=== PATIENT | male | born 1935 | race Caucasian/White ===

== ENCOUNTER 2018-08-22 14:48 | Emergency (ER) | payer OTHER ==
[~2018-08-22] VITALS: Ht 182.9 cm; Wt 92.5 kg
[~2018-08-22 14:48] MED LIST: AMLO5 PO; Amoxicillin125 MG PO; DILT120ERA PO; FURO40 PO; K-Dur 20 meq T20 MEQ PO; METO2.5 PO; OMEP20ER PO; POTCHL10ER PO; SIMV10 PO
[2018-08-22 15:12] LABS: BASOPHILS ABSOLUTE AUTO 0.03 K/mm3 (0.00-0.23); BASOPHILS PERCENT AUTO 1 % (0-2); EOSINOPHILS ABSOLUTE AUTO 0.06 K/mm3 (0.00-0.68); EOSINOPHILS PERCENT AUTO 1 % (0-6); Hematocrit 36.5 % (37.0-53.0); Hemoglobin 12.4 g/dL (13.5-17.5); IMMATURE GRAN ABSOLUTE AUTO 0.01 K/mm3 (0.00-0.10); IMMATURE GRAN PERCENT AUTO 0 % (0-1); LYMPHOCYTES ABSOLUTE AUTO 1.78 K/mm3 (0.84-5.20); LYMPHOCYTES PERCENT AUTO 33 % (21-46); MONOCYTES ABSOLUTE AUTO 0.64 K/mm3 (0.16-1.47); MONOCYTES PERCENT AUTO 12 % (4-13); Mean Corpuscular HGB 31.3 pg (26.0-34.0); Mean Corpuscular Volume 92 fL (80-100); Mean Platelet Volume 9.1 fL (9.1-12.4); NEUTROPHILS ABSOLUTE AUTO 2.93 K/mm3 (1.96-9.15); NEUTROPHILS PERCENT AUTO 54 % (41-73); Platelet Count 235 K/mm3 (150-400); RDW Coefficient Variation 12.2 % (11.7-14.2); RDW Standard Deviation 41.3 fL (35.1-46.3); Red Blood Cell Count 3.96 M/mm3 (4.30-5.90); White Blood Cell Count 5.45 K/mm3 (4.00-11.30)
[2018-08-22 15:36] LABS: Albumin, Blood 3.4 g/dL (3.4-5.0); Bilirubin, Total 0.5 mg/dL (0.1-1.0); Bun/Creatinine Ratio 9.9 (12.0-20.0); Calcium, Blood 8.4 mg/dL (8.5-10.1); Creatinine, Blood 1.41 mg/dL (0.60-1.20); Globulin, Blood 3.5 g/dL (2.2-4.0); Potassium, Blood 4.3 mmol/L (3.5-5.5); Total Protein, Blood 6.9 g/dL (6.4-8.2)
== END 2018-08-22 16:30 | disposition home or self-care (01) ==
LOC: ER 14:48
PROVIDERS: Emergency Medicine
DX: R55 Syncope and collapse (principal); E86.9 Volume depletion, unspecified; J44.9 Chronic obstructive pulmonary disease, unspecified; Z79.899 Other long term (current) drug therapy; I48.91 Unspecified atrial fibrillation; I48.92 Unspecified atrial flutter; I12.9 Hypertensive chronic kidney disease with stage 1 through stage 4 chronic kidney disease, or unspecified chronic kidney disease; N18.9 Chronic kidney disease, unspecified; E78.00 Pure hypercholesterolemia, unspecified
CPT/HCPCS: 71045; 80053; 85025; 93005; 93010; 96360; 99284-25; J7030

== ENCOUNTER 2020-05-14 20:57 | Observation (INO) | payer OTHER ==
[~2020-05-14] VITALS: Ht 182.9 cm; Wt 88.9 kg
[~2020-05-14 20:57] MED LIST changes: +Augmentin 875-1 EACH PO
[2020-05-14 21:23] LABS: BASOPHILS ABSOLUTE AUTO 0.04 K/mm3 (0.00-0.23); BASOPHILS PERCENT AUTO 1 % (0-2); EOSINOPHILS ABSOLUTE AUTO 0.12 K/mm3 (0.00-0.68); EOSINOPHILS PERCENT AUTO 2 % (0-6); Hematocrit 40.2 % (37.0-53.0); Hemoglobin 12.8 g/dL (13.5-17.5); IMMATURE GRAN ABSOLUTE AUTO 0.02 K/mm3 (0.00-0.10); IMMATURE GRAN PERCENT AUTO 0 % (0-1); LYMPHOCYTES ABSOLUTE AUTO 2.54 K/mm3 (0.84-5.20); LYMPHOCYTES PERCENT AUTO 40 % (21-46); MONOCYTES ABSOLUTE AUTO 0.67 K/mm3 (0.16-1.47); MONOCYTES PERCENT AUTO 11 % (4-13); Mean Corpuscular HGB 31.3 pg (26.0-34.0); Mean Corpuscular HGB Conc 31.8 g/dL (31.5-36.5); Mean Corpuscular Volume 98 fL (80-100); Mean Platelet Volume 9.8 fL (9.1-12.4); NEUTROPHILS ABSOLUTE AUTO 2.91 K/mm3 (1.96-9.15); NEUTROPHILS PERCENT AUTO 46 % (41-73); Platelet Count 204 K/mm3 (150-400); RDW Coefficient Variation 13.2 % (11.7-14.2); RDW Standard Deviation 47.6 fL (35.1-46.3); Red Blood Cell Count 4.09 M/mm3 (4.30-5.90)
[2020-05-14 21:33] LABS: Source, Urine Voided
[2020-05-14 21:44] LABS: Appearance, Urine Clear (Clear); Bacteria Many /hpf; Bilirubin, Urine Neg (Neg); Blood, Urine Neg (Neg); Color, Urine Yellow (P-Yellow); Glucose Qualitative, Urine Neg (Neg); Ketones, Urine Neg (Neg); Leukocyte Esterase, Urine 1+ (Neg); Nitrite, Urine Pos (Neg); Protein, Urine 2+ (Neg); Red Blood Cells, Urine Not Seen /hpf (0-2); Squamous Epithelial Cells Not Seen /hpf (Few); Urobilinogen, Urine NORM (Normal); White Blood Cells, Urine 25-50 /hpf (0-5)
[2020-05-14 21:45] LABS: Alanine Aminotransfer (ALT/SGP 19 U/L (12-78); Albumin, Blood 3.4 g/dL (3.4-5.0); Albumin/Globulin Ratio 0.9 (0.8-1.8); Alk Phos 73 U/L (50-136); Anion Gap 5 mmol/L (6-16); Aspartate Aminotrans (AST/SGOT 12 U/L (12-37); Bilirubin, Total 0.3 mg/dL (0.1-1.0); Blood Urea Nitrogen 27 mg/dL (8-24); Bun/Creatinine Ratio 18.1 (12.0-20.0); CO2, Blood 25 mmol/L (21-32); Chloride, Blood 110 mmol/L (98-108); Creatinine, Blood 1.49 mg/dL (0.60-1.20); Globulin, Blood 3.9 g/dL (2.2-4.0); Glomerular Filtration Rate 48 (60-); Glucose, Blood 92 mg/dL (70-99); Potassium, Blood 4.1 mmol/L (3.5-5.5); Sodium, Blood 140 mmol/L (136-145); Total Protein, Blood 7.3 g/dL (6.4-8.2); Troponin I <0.015 ng/mL (0.000-0.040)
[2020-05-14] MEDS ORDERED: DONEPEZIL HCL5 M2 PO (23:38)
[2020-05-14 23:59] LABS: Free Thyroxine 0.91 ng/dL (0.70-1.60); Magnesium, Blood 2.4 mg/dL (1.6-2.4)
[2020-05-15] MEDS ORDERED: ELIQUIS5 MG PO (00:13)
[2020-05-15] MEDS ORDERED: ALBU90OI INH (00:13)
[2020-05-15] MEDS ORDERED: ASCO500 PO (00:14)
[2020-05-15] MEDS ORDERED: BUDESONIDE-FO10.2 G3 INH (00:15)
[2020-05-15] MEDS ORDERED: Aspir 8181 MG PO (00:15)
[2020-05-15] MEDS ORDERED: DILT120 PO (00:16)
[2020-05-15] MEDS ORDERED: Prinivil10 MG PO (00:17)
[2020-05-15] MEDS ORDERED: DONE5 PO (00:17)
[2020-05-15] MEDS ORDERED: TRAM50 PO (00:18)
[2020-05-15] MEDS ORDERED: OMEP20ER PO (00:18)
[2020-05-15] MEDS ORDERED: TRAZ50 PO (00:20)
--- NOTE | 2020-05-15 06:23 | NUR ---
SHIFT SUMMARY PATIENT ARRIVED TO MEDICAL UNIT VIA STRETCHER AT 0052. PATIENT A&O X3, VERY PLEASANT IN HIS CONFUSION. PATIENT IS ABLE TO AMBULATE WITH STAND BY ASSIST TO THE BATHROOM. IV PATENT AND INFUSING WITH NORMAL SALINE AT 75 ML/HR. TELE IN PLACE, PATIENT RUNNING BRADYCARDIC. RECEIVED A REPORT FROM THE SCIENCE EDUCATION PROFESSOR AT 0518 THAT THE PATIENT HAD A 3.52 SECOND PAUSE IN HIS HEART RATE, VITALS TAKEN AND WERE STABLE, PATIENT ASYMPTOMATIC, PAUSE REPORTED AND CONSULTED WITH CHARGE NURSE ORLY PRADO. BED IN LOWEST POSITION WITH WHEELS LOCKED AND ALARM ON. CALL LIGHT WITHIN REACH. REPORT GIVEN TO ONCOMING RN.
[2020-05-15] MEDS ORDERED: CENTRUM SILVER1 EAC2 PO (08:14)
[2020-05-15 09:26] LABS: BASOPHILS ABSOLUTE AUTO 0.05 K/mm3 (0.00-0.23); BASOPHILS PERCENT AUTO 1 % (0-2); EOSINOPHILS ABSOLUTE AUTO 0.12 K/mm3 (0.00-0.68); EOSINOPHILS PERCENT AUTO 2 % (0-6); Hematocrit 41.6 % (37.0-53.0); Hemoglobin 13.4 g/dL (13.5-17.5); IMMATURE GRAN ABSOLUTE AUTO 0.02 K/mm3 (0.00-0.10); IMMATURE GRAN PERCENT AUTO 0 % (0-1); LYMPHOCYTES ABSOLUTE AUTO 2.01 K/mm3 (0.84-5.20); LYMPHOCYTES PERCENT AUTO 35 % (21-46); MONOCYTES ABSOLUTE AUTO 0.43 K/mm3 (0.16-1.47); MONOCYTES PERCENT AUTO 7 % (4-13); Mean Corpuscular HGB 31.4 pg (26.0-34.0); Mean Corpuscular HGB Conc 32.2 g/dL (31.5-36.5); Mean Corpuscular Volume 97 fL (80-100); Mean Platelet Volume 9.9 fL (9.1-12.4); NEUTROPHILS ABSOLUTE AUTO 3.19 K/mm3 (1.96-9.15); NEUTROPHILS PERCENT AUTO 55 % (41-73); Platelet Count 220 K/mm3 (150-400); RDW Standard Deviation 46.6 fL (35.1-46.3); Red Blood Cell Count 4.27 M/mm3 (4.30-5.90); White Blood Cell Count 5.82 K/mm3 (4.00-11.30)
[2020-05-15 09:50] LABS: Albumin, Blood 3.3 g/dL (3.4-5.0); Albumin/Globulin Ratio 0.8 (0.8-1.8); Bilirubin, Total 0.5 mg/dL (0.1-1.0); Bun/Creatinine Ratio 20.2 (12.0-20.0); Calcium, Blood 8.4 mg/dL (8.5-10.1); Creatinine, Blood 1.29 mg/dL (0.60-1.20); Potassium, Blood 4.2 mmol/L (3.5-5.5); Total Protein, Blood 7.3 g/dL (6.4-8.2)
--- NOTE | 2020-05-15 15:10 | NUR ---
SPOKE WITH DR. GORDON ABOUT PATIENT CONTINUING TO HAVE MULTIPLE PAUSES ON TELE, 3-3.[address] GORDON FEELS THAT THIS WILL IMPROVE THE CARDIAC MEDICATIONS THAT HAVE NOW BEEN STOPPED CLEAR HIS SYSTEM. NO ORDERS RECEIVED.
--- NOTE | 2020-05-15 17:15 | NUR ---
PATIENT A/OX3, FOEGETFUL ABOUT SITUATION AT TIME. PATIENT REMAINS IN A-FLUTTER ON TELE IN THE 40-50'S. PATIENT HAS HAD MUTLIPLE EPISODES OF PAUSES THIS SHIFT AND DR GORDON IS AWARE. EKG PERFOMRED AND IT SHOWED A-FLUTTER AT 58. PATIENT IS ASYMPTOMATIC WITH EPISODES. B/P STABLE. TOLERATING REGULAR DIET. UP WITH SBA TO RESTROOM, GAIT STEADY. ELIQUIS SWITCHED TO XARELTO. PATIENT IS CALM AND COOPERATIVE WITH CARE AND CALLS APPROPRIATELY FOR ASSISTANCE.
--- NOTE | 2020-05-16 04:16 | NUR ---
SHIFT SUMMARY ASSUMED CARE OF PT AT 1900. PT IS A/OX3, DENIES N/T IN EXTREMTIES. HEART SOUNDS IRREGULAR, TELE SHOWS AFLUTTER @ 58, DIPPING INTO THE 30'S DURING THE NIGHT. THERE WERE 17 PAUSES RANGING FROM 3.0-3.7 SECONDS, COMPARED TO 11 PAUSES YESTERDAY NIGHT WITH THE LONGEST AT 3.5 SECONDS, DENIED CP ALL NIGHT. LUNG SOUNDS DIMINISHED, WEARS 2L NC AT NIGHT, DENIES SOB. PT HAD FREQUENT URINATION T/O THE NIGHT, IS IMPULSIVE AND WILL GET UP AND SET THE ALARM OFF. PT IS STABLE ON FEET. NO ACUTE EVENTS DURING THE NIGHT. PT SLEPT MOST OF HE NIGHT EXCEPT FOR WHEN HE HAD TO PEE. CALL LIGHT IN REACH, BED IN LOWEST POSTION, WILL CONTINUE TO MOINTOR UNTIL DAYSHIFT NURSE ARRIVES.
[2020-05-16] MEDS ORDERED: BUDE.25 INH (14:20)
--- NOTE | 2020-05-16 14:50 | NUR ---
PATIENT DC'D TO HOME WITH SPOUSE. PRESCRIPTION FOR PULMICORT SENT TO [facility]. AFTER DC A MED REC UPDATE WAS COMPLETED AND PULMICORT WAS DISCONTINUED. [facility] CALLED TO UPDATE THEM ON THIS CHANGE. SPOKE WITH PATIENTS DAUGHTER AMBAR AND EXPLAINED TO HER THAT PULMICORT HAD NOW BEEN DC'D AND THERE WAS NOTHING TO BE PICKED UP AT THE PHARMACY. DC INSTRUCTIONS AND EDUCATION DISCUSSED WITH PATIENT AND SPOUSE AND COPY PROVIDED. PATIENT DENIES ANY FURTHER QUESTIONS OR CONCERNS.
== END 2020-05-16 14:35 | disposition home or self-care (01) ==
LOC: ER 20:57 → MEDS 23:38
PROVIDERS: Emergency Medicine; ADMIT Internal Medicine
DX: I48.92 Unspecified atrial flutter (principal); I44.30 Unspecified atrioventricular block; G92 Toxic encephalopathy; I12.9 Hypertensive chronic kidney disease with stage 1 through stage 4 chronic kidney disease, or unspecified chronic kidney disease; N18.3 Chronic kidney disease, stage 3 (moderate); I48.20 Chronic atrial fibrillation, unspecified; G47.33 Obstructive sleep apnea (adult) (pediatric); E78.5 Hyperlipidemia, unspecified; J44.9 Chronic obstructive pulmonary disease, unspecified; E02 Subclinical iodine-deficiency hypothyroidism; F03.90 Unspecified dementia, unspecified severity, without behavioral disturbance, psychotic disturbance, mood disturbance, and anxiety; Z79.899 Other long term (current) drug therapy
CPT/HCPCS: 36415; 70450; 71045; 80053; 81001; 83605; 83735; 84439; 84443; 84484; 85025; 87086; 93005; 93010; 93306; 94640; 94760; 96361; 96365; 96366; 99285-25; A9270-GY; G0378; J0696; J7030

== ENCOUNTER 2020-06-15 22:13 | Emergency (ER) | payer OTHER ==
[~2020-06-15] VITALS: Ht 182.9 cm; Wt 81.7 kg
[~2020-06-15 22:13] MED LIST changes: +ALBU90OI INH; +ASCO500 PO; +Aspir 8181 MG PO; +BUDE.25 INH; +BUDESONIDE-FO10.2 G3 INH; +CENTRUM SILVER1 EAC2 PO; +DILT120 PO; +DONE5 PO; +DONEPEZIL HCL5 M2 PO; +ELIQUIS5 MG PO; +Prinivil10 MG PO; +TRAM50 PO; +TRAZ50 PO
[2020-06-15 22:35] LABS: BASOPHILS ABSOLUTE AUTO 0.06 K/mm3 (0.00-0.23); BASOPHILS PERCENT AUTO 1 % (0-2); EOSINOPHILS ABSOLUTE AUTO 0.12 K/mm3 (0.00-0.68); EOSINOPHILS PERCENT AUTO 2 % (0-6); Hematocrit 41.2 % (37.0-53.0); Hemoglobin 13.3 g/dL (13.5-17.5); IMMATURE GRAN ABSOLUTE AUTO 0.02 K/mm3 (0.00-0.10); IMMATURE GRAN PERCENT AUTO 0 % (0-1); LYMPHOCYTES ABSOLUTE AUTO 2.92 K/mm3 (0.84-5.20); LYMPHOCYTES PERCENT AUTO 45 % (21-46); MONOCYTES ABSOLUTE AUTO 0.61 K/mm3 (0.16-1.47); MONOCYTES PERCENT AUTO 9 % (4-13); Mean Corpuscular HGB 31.7 pg (26.0-34.0); Mean Corpuscular HGB Conc 32.3 g/dL (31.5-36.5); Mean Corpuscular Volume 98 fL (80-100); Mean Platelet Volume 9.6 fL (9.1-12.4); NEUTROPHILS ABSOLUTE AUTO 2.83 K/mm3 (1.96-9.15); NEUTROPHILS PERCENT AUTO 43 % (41-73); Platelet Count 192 K/mm3 (150-400); RDW Coefficient Variation 13.5 % (11.7-14.2); RDW Standard Deviation 48.4 fL (35.1-46.3); Red Blood Cell Count 4.19 M/mm3 (4.30-5.90); White Blood Cell Count 6.56 K/mm3 (4.00-11.30)
[2020-06-15 22:55] LABS: Albumin, Blood 3.3 g/dL (3.4-5.0); Albumin/Globulin Ratio 0.9 (0.8-1.8); Bilirubin, Total 0.2 mg/dL (0.1-1.0); Bun/Creatinine Ratio 24.5 (12.0-20.0); Calcium, Blood 8.6 mg/dL (8.5-10.1); Creatinine, Blood 1.43 mg/dL (0.60-1.20); Globulin, Blood 3.6 g/dL (2.2-4.0); Potassium, Blood 4.8 mmol/L (3.5-5.5); Total Protein, Blood 6.9 g/dL (6.4-8.2); Troponin I 0.023 ng/mL (0.000-0.040)
[2020-06-15] MEDS ORDERED: Prednisone20 MG PO (23:33)
[2020-07-07] MEDS ORDERED: QUET25 PO (21:14)
== END 2020-06-15 23:57 | disposition home or self-care (01) ==
LOC: ER 22:13
PROVIDERS: Emergency Medicine
DX: J44.1 Chronic obstructive pulmonary disease with (acute) exacerbation (principal); Z79.82 Long term (current) use of aspirin; Z79.899 Other long term (current) drug therapy; I48.91 Unspecified atrial fibrillation; I48.92 Unspecified atrial flutter; F03.90 Unspecified dementia, unspecified severity, without behavioral disturbance, psychotic disturbance, mood disturbance, and anxiety; K21.9 Gastro-esophageal reflux disease without esophagitis; Z87.891 Personal history of nicotine dependence
CPT/HCPCS: 71046; 80053; 84484; 85025; 93005; 93010; 99285-25; J7512

== ENCOUNTER 2020-07-08 13:14 | Emergency (ER) | payer OTHER ==
[~2020-07-08] VITALS: Ht 182.9 cm; Wt 95.2 kg
[~2020-07-08 13:14] MED LIST changes: +Prednisone20 MG PO; +QUET25 PO
[2020-07-08 14:14] LABS: BASOPHILS ABSOLUTE AUTO 0.03 K/mm3 (0.00-0.23); BASOPHILS PERCENT AUTO 1 % (0-2); EOSINOPHILS ABSOLUTE AUTO 0.11 K/mm3 (0.00-0.68); EOSINOPHILS PERCENT AUTO 3 % (0-6); Hematocrit 43.3 % (37.0-53.0); Hemoglobin 13.9 g/dL (13.5-17.5); IMMATURE GRAN ABSOLUTE AUTO 0.01 K/mm3 (0.00-0.10); IMMATURE GRAN PERCENT AUTO 0 % (0-1); LYMPHOCYTES ABSOLUTE AUTO 1.69 K/mm3 (0.84-5.20); LYMPHOCYTES PERCENT AUTO 39 % (21-46); MONOCYTES ABSOLUTE AUTO 0.42 K/mm3 (0.16-1.47); MONOCYTES PERCENT AUTO 10 % (4-13); Mean Corpuscular HGB 31.4 pg (26.0-34.0); Mean Corpuscular HGB Conc 32.1 g/dL (31.5-36.5); Mean Corpuscular Volume 98 fL (80-100); Mean Platelet Volume 9.5 fL (9.1-12.4); NEUTROPHILS ABSOLUTE AUTO 2.11 K/mm3 (1.96-9.15); NEUTROPHILS PERCENT AUTO 48 % (41-73); Platelet Count 222 K/mm3 (150-400); RDW Coefficient Variation 12.9 % (11.7-14.2); RDW Standard Deviation 46.1 fL (35.1-46.3); Red Blood Cell Count 4.42 M/mm3 (4.30-5.90); White Blood Cell Count 4.37 K/mm3 (4.00-11.30)
[2020-07-08 14:47] LABS: Albumin, Blood 2.9 g/dL (3.4-5.0); Albumin/Globulin Ratio 0.8 (0.8-1.8); Bilirubin, Total 0.2 mg/dL (0.1-1.0); Bun/Creatinine Ratio 23.4 (12.0-20.0); Calcium, Blood 8.3 mg/dL (8.5-10.1); Creatinine, Blood 1.45 mg/dL (0.60-1.20); Globulin, Blood 3.6 g/dL (2.2-4.0); Potassium, Blood 4.3 mmol/L (3.5-5.5); Total Protein, Blood 6.5 g/dL (6.4-8.2)
[2020-07-08 15:25] LABS: Source, Urine Catheter
[2020-07-08 15:52] LABS: Appearance, Urine Clear (Clear); Bilirubin, Urine Neg (Neg); Blood, Urine Neg (Neg); Color, Urine Yellow (P-Yellow); Glucose Qualitative, Urine Neg (Neg); Ketones, Urine Neg (Neg); Leukocyte Esterase, Urine Neg (Neg); Nitrite, Urine Neg (Neg); Protein, Urine 2+ (Neg); Specific Gravity, Urine 1.025 (1.003-1.022); Urobilinogen, Urine NORM (Normal)
[2020-07-08 16:01] LABS: Bacteria Not Seen /hpf; Red Blood Cells, Urine 0-2 /hpf (0-2); Squamous Epithelial Cells Few /hpf (Few); White Blood Cells, Urine 0-2 /hpf (0-5)
== END 2020-07-08 17:10 | disposition home or self-care (01) ==
LOC: ER 13:14
PROVIDERS: Physician Assistant
DX: F03.90 Unspecified dementia, unspecified severity, without behavioral disturbance, psychotic disturbance, mood disturbance, and anxiety (principal); I12.9 Hypertensive chronic kidney disease with stage 1 through stage 4 chronic kidney disease, or unspecified chronic kidney disease; N18.3 Chronic kidney disease, stage 3 (moderate); Z79.82 Long term (current) use of aspirin; Z79.899 Other long term (current) drug therapy; I48.91 Unspecified atrial fibrillation; E78.5 Hyperlipidemia, unspecified; J44.9 Chronic obstructive pulmonary disease, unspecified
CPT/HCPCS: 36415; 70450; 80053; 81001; 85025; 93005; 93010; 99285-25

== ENCOUNTER 2020-10-28 20:56 | Emergency (ER) | payer OTHER ==
[~2020-10-28] VITALS: Ht 182.9 cm; Wt 83.9 kg
[2020-10-28 21:14] LABS: BASOPHILS ABSOLUTE AUTO 0.05 K/mm3 (0.00-0.23); BASOPHILS PERCENT AUTO 1 % (0-2); EOSINOPHILS ABSOLUTE AUTO 0.14 K/mm3 (0.00-0.68); EOSINOPHILS PERCENT AUTO 3 % (0-6); Hematocrit 40.1 % (37.0-53.0); Hemoglobin 12.6 g/dL (13.5-17.5); IMMATURE GRAN ABSOLUTE AUTO 0.01 K/mm3 (0.00-0.10); IMMATURE GRAN PERCENT AUTO 0 % (0-1); LYMPHOCYTES ABSOLUTE AUTO 2.08 K/mm3 (0.84-5.20); LYMPHOCYTES PERCENT AUTO 43 % (21-46); MONOCYTES ABSOLUTE AUTO 0.49 K/mm3 (0.16-1.47); MONOCYTES PERCENT AUTO 10 % (4-13); Mean Corpuscular HGB Conc 31.4 g/dL (31.5-36.5); Mean Corpuscular Volume 99 fL (80-100); Mean Platelet Volume 9.8 fL (9.1-12.4); NEUTROPHILS ABSOLUTE AUTO 2.02 K/mm3 (1.96-9.15); NEUTROPHILS PERCENT AUTO 42 % (41-73); Platelet Count 166 K/mm3 (150-400); RDW Coefficient Variation 13.8 % (11.7-14.2); RDW Standard Deviation 50.3 fL (35.1-46.3); Red Blood Cell Count 4.07 M/mm3 (4.30-5.90); White Blood Cell Count 4.79 K/mm3 (4.00-11.30)
[2020-10-28 21:28] LABS: International Normalized Ratio 1.09; Prothrombin Time Results 11.6 Sec (9.7-11.5)
[2020-10-28 21:32] LABS: Albumin, Blood 3.1 g/dL (3.4-5.0); Albumin/Globulin Ratio 0.9 (0.8-1.8); Bilirubin, Total 0.4 mg/dL (0.1-1.0); Bun/Creatinine Ratio 20.5 (12.0-20.0); Calcium, Blood 8.9 mg/dL (8.5-10.1); Creatinine, Blood 1.22 mg/dL (0.60-1.20); Globulin, Blood 3.4 g/dL (2.2-4.0); Potassium, Blood 3.7 mmol/L (3.5-5.5); Total Protein, Blood 6.5 g/dL (6.4-8.2); Troponin I 0.022 ng/mL (0.000-0.040)
[2020-10-28 22:20] LABS: Source, Urine Voided
[2020-10-28 22:27] LABS: Bilirubin, Urine Neg (Neg); Blood, Urine 5+ (Neg); Glucose Qualitative, Urine Neg (Neg); Ketones, Urine Neg (Neg); Leukocyte Esterase, Urine 1+ (Neg); Nitrite, Urine Neg (Neg); Protein, Urine 2+ (Neg); Specific Gravity, Urine 1.025 (1.003-1.022); Urobilinogen, Urine NORM (Normal)
[2020-10-28 22:32] LABS: Appearance, Urine Hazy (Clear); Color, Urine Yellow (P-Yellow)
[2020-10-28 22:33] LABS: Bacteria Few /hpf; Red Blood Cells, Urine TNTC /hpf (0-2); Squamous Epithelial Cells Rare /hpf (Few); White Blood Cells, Urine 0-2 /hpf (0-5)
== END 2020-10-28 23:26 | disposition home or self-care (01) ==
LOC: ER 20:56
PROVIDERS: Emergency Medicine
DX: R55 Syncope and collapse (principal); I48.91 Unspecified atrial fibrillation; I12.9 Hypertensive chronic kidney disease with stage 1 through stage 4 chronic kidney disease, or unspecified chronic kidney disease; N18.30 Chronic kidney disease, stage 3 unspecified; J44.9 Chronic obstructive pulmonary disease, unspecified; F03.90 Unspecified dementia, unspecified severity, without behavioral disturbance, psychotic disturbance, mood disturbance, and anxiety; E78.5 Hyperlipidemia, unspecified; Z79.01 Long term (current) use of anticoagulants; Z79.899 Other long term (current) drug therapy; Z79.82 Long term (current) use of aspirin
CPT/HCPCS: 70450; 80053; 81001; 84484; 85025; 85610; 93005; 93010; 99285-25

== ENCOUNTER → 2021-06-18 | Outpatient (CLI) | payer OTHER ==
[2021-06-18 10:45] LABS: BASOPHILS ABSOLUTE AUTO 0.04 K/mm3 (0.00-0.23); BASOPHILS PERCENT AUTO 1 % (0-2); EOSINOPHILS ABSOLUTE AUTO 0.18 K/mm3 (0.00-0.68); EOSINOPHILS PERCENT AUTO 3 % (0-6); Hematocrit 27.8 % (37.0-53.0); Hemoglobin 8.5 g/dL (13.5-17.5); IMMATURE GRAN ABSOLUTE AUTO 0.04 K/mm3 (0.00-0.10); IMMATURE GRAN PERCENT AUTO 1 % (0-1); LYMPHOCYTES ABSOLUTE AUTO 1.34 K/mm3 (0.84-5.20); LYMPHOCYTES PERCENT AUTO 20 % (21-46); MONOCYTES ABSOLUTE AUTO 0.52 K/mm3 (0.16-1.47); MONOCYTES PERCENT AUTO 8 % (4-13); Mean Corpuscular HGB 29.9 pg (26.0-34.0); Mean Corpuscular HGB Conc 30.6 g/dL (31.5-36.5); Mean Corpuscular Volume 98 fL (80-100); Mean Platelet Volume 9.9 fL (9.1-12.4); NEUTROPHILS ABSOLUTE AUTO 4.58 K/mm3 (1.96-9.15); NEUTROPHILS PERCENT AUTO 68 % (41-73); Platelet Count 414 K/mm3 (150-400); RDW Coefficient Variation 13.5 % (11.7-14.2); Red Blood Cell Count 2.84 M/mm3 (4.30-5.90)
== END | disposition home or self-care (01) ==
LOC: LAB SHORT 09:00
PROVIDERS: Family Medicine
DX: D64.9 Anemia, unspecified (principal)
CPT/HCPCS: 85025

== ENCOUNTER → 2021-08-19 | Outpatient (CLI) | payer OTHER ==
[2021-08-19 13:44] LABS: BASOPHILS ABSOLUTE AUTO 0.04 K/mm3 (0.00-0.23); BASOPHILS PERCENT AUTO 1 % (0-2); EOSINOPHILS ABSOLUTE AUTO 0.12 K/mm3 (0.00-0.68); EOSINOPHILS PERCENT AUTO 3 % (0-6); Hematocrit 28.4 % (37.0-53.0); Hemoglobin 8.8 g/dL (13.5-17.5); IMMATURE GRAN ABSOLUTE AUTO 0.02 K/mm3 (0.00-0.10); IMMATURE GRAN PERCENT AUTO 0 % (0-1); LYMPHOCYTES ABSOLUTE AUTO 1.51 K/mm3 (0.84-5.20); LYMPHOCYTES PERCENT AUTO 32 % (21-46); MONOCYTES ABSOLUTE AUTO 0.34 K/mm3 (0.16-1.47); MONOCYTES PERCENT AUTO 7 % (4-13); Mean Corpuscular Volume 100 fL (80-100); Mean Platelet Volume 10.1 fL (9.1-12.4); NEUTROPHILS ABSOLUTE AUTO 2.71 K/mm3 (1.96-9.15); NEUTROPHILS PERCENT AUTO 57 % (41-73); Platelet Count 288 K/mm3 (150-400); RDW Coefficient Variation 17.8 % (11.7-14.2); RDW Standard Deviation 65.6 fL (35.1-46.3); Red Blood Cell Count 2.84 M/mm3 (4.30-5.90); White Blood Cell Count 4.74 K/mm3 (4.00-11.30)
[2021-08-19 14:59] LABS: Albumin, Blood 2.6 g/dL (3.4-5.0); Albumin/Globulin Ratio 0.6 (0.8-1.8); Bilirubin, Total 0.3 mg/dL (0.1-1.0); Bun/Creatinine Ratio 13.6 (12.0-20.0); Calcium, Blood 9.1 mg/dL (8.5-10.1); Creatinine, Blood 1.32 mg/dL (0.60-1.20); Globulin, Blood 4.7 g/dL (2.2-4.0); Potassium, Blood 3.6 mmol/L (3.5-5.5); Total Protein, Blood 7.3 g/dL (6.4-8.2)
== END | disposition home or self-care (01) ==
LOC: LAB SHORT 11:00
PROVIDERS: Family Medicine
DX: D64.9 Anemia, unspecified (principal)
CPT/HCPCS: 80053; 83880; 85025

== ENCOUNTER 2021-10-29 09:12 | Emergency (ER) | payer OTHER ==
[~2021-10-29] VITALS: Ht 182.9 cm; Wt 81.7 kg
[2021-10-29] MEDS ORDERED: ALBU90OI INH (09:45)
[2021-10-29] MEDS ORDERED: SYMBICORT 80-46.9 GM IH (09:45)
[2021-10-29] MEDS ORDERED: FERSU300 (09:45)
[2021-10-29 09:47] LABS: BASOPHILS ABSOLUTE AUTO 0.05 K/mm3 (0.00-0.23); BASOPHILS PERCENT AUTO 1 % (0-2); EOSINOPHILS ABSOLUTE AUTO 0.16 K/mm3 (0.00-0.68); EOSINOPHILS PERCENT AUTO 2 % (0-6); Hematocrit 28.9 % (37.0-53.0); Hemoglobin 9.3 g/dL (13.5-17.5); IMMATURE GRAN ABSOLUTE AUTO 0.02 K/mm3 (0.00-0.10); IMMATURE GRAN PERCENT AUTO 0 % (0-1); LYMPHOCYTES ABSOLUTE AUTO 2.13 K/mm3 (0.84-5.20); LYMPHOCYTES PERCENT AUTO 32 % (21-46); MONOCYTES ABSOLUTE AUTO 0.48 K/mm3 (0.16-1.47); MONOCYTES PERCENT AUTO 7 % (4-13); Mean Corpuscular HGB 32.1 pg (26.0-34.0); Mean Corpuscular HGB Conc 32.2 g/dL (31.5-36.5); Mean Corpuscular Volume 100 fL (80-100); Mean Platelet Volume 9.7 fL (9.1-12.4); NEUTROPHILS ABSOLUTE AUTO 3.75 K/mm3 (1.96-9.15); NEUTROPHILS PERCENT AUTO 57 % (41-73); Platelet Count 252 K/mm3 (150-400); RDW Coefficient Variation 12.5 % (11.7-14.2); RDW Standard Deviation 46.2 fL (35.1-46.3); White Blood Cell Count 6.59 K/mm3 (4.00-11.30)
[2021-10-29 10:04] LABS: Alanine Aminotransfer (ALT/SGP 9 U/L (12-78); Albumin, Blood 2.6 g/dL (3.4-5.0); Albumin/Globulin Ratio 0.5 (0.8-1.8); Alk Phos 60 U/L (50-136); Anion Gap 8 mmol/L (6-16); Aspartate Aminotrans (AST/SGOT 10 U/L (12-37); Bilirubin, Total 0.3 mg/dL (0.1-1.0); Blood Urea Nitrogen 27 mg/dL (8-24); Bun/Creatinine Ratio 21.1 (12.0-20.0); CO2, Blood 23 mmol/L (21-32); Calcium, Blood 9.1 mg/dL (8.5-10.1); Chloride, Blood 110 mmol/L (98-108); Creatinine, Blood 1.28 mg/dL (0.60-1.20); Globulin, Blood 4.8 g/dL (2.2-4.0); Glomerular Filtration Rate 53 (60-); Glucose, Blood 153 mg/dL (70-99); Potassium, Blood 3.7 mmol/L (3.5-5.5); Sodium, Blood 141 mmol/L (136-145); Total Protein, Blood 7.4 g/dL (6.4-8.2); Troponin I <0.015 ng/mL (0.000-0.040)
[2021-10-29 11:23] LABS: Source, Urine Clean Catch
[2021-10-29 11:56] LABS: Appearance, Urine Clear (Clear); Bilirubin, Urine Neg (Neg); Blood, Urine Neg (Neg); Color, Urine Yellow (P-Yellow); Glucose Qualitative, Urine Neg (Neg); Ketones, Urine Neg (Neg); Leukocyte Esterase, Urine Neg (Neg); Nitrite, Urine Neg (Neg); Protein, Urine 1+ (Neg); Specific Gravity, Urine 1.015 (1.003-1.022); Urobilinogen, Urine NORM (Normal); pH, Urine 6.5 (5.0-8.0)
== END 2021-10-29 13:00 | disposition home or self-care (01) ==
LOC: ER 09:12
PROVIDERS: Physician Assistant
DX: R56.9 Unspecified convulsions (principal); J44.9 Chronic obstructive pulmonary disease, unspecified; I48.92 Unspecified atrial flutter; I48.91 Unspecified atrial fibrillation; I12.9 Hypertensive chronic kidney disease with stage 1 through stage 4 chronic kidney disease, or unspecified chronic kidney disease; N18.30 Chronic kidney disease, stage 3 unspecified; E78.5 Hyperlipidemia, unspecified; F03.90 Unspecified dementia, unspecified severity, without behavioral disturbance, psychotic disturbance, mood disturbance, and anxiety; Z79.899 Other long term (current) drug therapy; Z79.01 Long term (current) use of anticoagulants
CPT/HCPCS: 70450; 71046; 80053; 84484; 85025; 93005; 93010; 99285-25

== ENCOUNTER 2022-02-20 00:39 | Inpatient (IN) | payer OTHER ==
[~2022-02-20] VITALS: Ht 182.9 cm; Wt 63.4 kg
[~2022-02-20 00:39] MED LIST changes: +FERSU300; +SYMBICORT 80-46.9 GM IH
[2022-02-20 01:44] LABS: Albumin, Blood 2.8 g/dL (3.4-5.0); Albumin/Globulin Ratio 0.6 (0.8-1.8); Bilirubin, Total 0.3 mg/dL (0.1-1.0); Bun/Creatinine Ratio 15.4 (12.0-20.0); Creatinine, Blood 1.49 mg/dL (0.60-1.20); Globulin, Blood 4.6 g/dL (2.2-4.0); Total Protein, Blood 7.4 g/dL (6.4-8.2)
[2022-02-20 01:51] LABS: BASOPHILS ABSOLUTE AUTO 0.04 K/mm3 (0.00-0.23); BASOPHILS PERCENT AUTO 1 % (0-2); EOSINOPHILS ABSOLUTE AUTO 0.07 K/mm3 (0.00-0.68); EOSINOPHILS PERCENT AUTO 1 % (0-6); Hematocrit 24.6 % (37.0-53.0); IMMATURE GRAN ABSOLUTE AUTO 0.07 K/mm3 (0.00-0.10); IMMATURE GRAN PERCENT AUTO 1 % (0-1); LYMPHOCYTES ABSOLUTE AUTO 1.32 K/mm3 (0.84-5.20); LYMPHOCYTES PERCENT AUTO 16 % (21-46); MONOCYTES ABSOLUTE AUTO 0.42 K/mm3 (0.16-1.47); MONOCYTES PERCENT AUTO 5 % (4-13); Mean Corpuscular HGB Conc 32.5 g/dL (31.5-36.5); Mean Corpuscular Volume 92 fL (80-100); Mean Platelet Volume 9.7 fL (9.1-12.4); NEUTROPHILS PERCENT AUTO 78 % (41-73); Platelet Count 334 K/mm3 (150-400); RDW Coefficient Variation 13.8 % (11.7-14.2); RDW Standard Deviation 46.9 fL (35.1-46.3); Red Blood Cell Count 2.67 M/mm3 (4.30-5.90); White Blood Cell Count 8.52 K/mm3 (4.00-11.30)
[2022-02-20 03:55] LABS: Influenza A, PCR NEGATIVE (NEGATIVE); Influenza B, PCR NEGATIVE (NEGATIVE); Resp Syncytial Virus, PCR NEGATIVE (NEGATIVE); SARS-Cov-2 (COVID-19) PCR, MMC NEGATIVE (NEGATIVE)
[2022-02-20] MEDS ORDERED: Seroquel Xr50 MG PO ×2 (05:47→05:49)
[2022-02-20] MEDS ORDERED: QUET25 PO ×2 (05:48→14:00)
[2022-02-20] MEDS ORDERED: Acetaminophen650 M1 PO (05:51)
[2022-02-20 06:12] LABS: Bun/Creatinine Ratio 14.9 (12.0-20.0); Calcium, Blood 8.6 mg/dL (8.5-10.1); Creatinine, Blood 1.48 mg/dL (0.60-1.20); Potassium, Blood 4.2 mmol/L (3.5-5.5)
--- NOTE | 2022-02-20 06:47 | NUR ---
SHIFT SUMMARY ASSUMED CARE OF PT AT 1900. PT IS ALERT BUT NOT RIENTED. DAUGHTER STATES PT HAS BECOME MORE CONFUSED AND IS LIVING AT [facility] HIS COULD NOT CARE FOR HIM ANYMORE. PT WILL FOLLOW DIRECTIONS POORLY, FOR EXAMPLE, HE WILL SAY YES TO A COMMAND BUT NOT FOLLOW THROUGH. HEART SOUNDS IRREGULAR, TELE SHOWS AFIB. LUNG SOUNDS HAVE CRACKLES AT THE BASES, PT ON 6L NC. RESPIRATIONS INCREASED. DAUGHTER STATES PT KNOWS WHEN HE GOES BUT NOT TILL AFTER HE IS INCONTINENT. PT IS RESTING IN BED DAUGHTER STATES THAT SHE IS POA RIGHT NOW BUT PT IS TRYING TO OVER THROW THAT POWER. DAUGHTER ASKED THAT , NATHANAEL, NOT BE CONTACTED.
--- NOTE | 2022-02-20 10:27 | NUR ---
AM NOTE: PATIENT ALERT TO SELF AND FAMILY. MUMBLES WHEN TALKING AND AT TIMES SLOWER TO RESPOND. SHAKING HEAD YES AND NO THIS AM. AT BEDSIDE AND MORE ALERT. DENIES NUMBNESS/TINGLING. PERRLA. OVERALL WEAK. ABLE TO TURN SELF IN BED. BED ALARM IN PLACE FOR SAFETY. TELE SHOWING SINUS RHYTHM WITH HR AVERAGING 70'S AT THIS TIME. DENIES CHEST PAIN/PRESSURE. BP STABLE. ON 3-4L O2 NASAL CANNULA AT THIS TIME. HOME BASELINE IS 2L. SATING LOW 90'S. CONTINOUS PULSE OX IN PLACE. OCCASIONAL LOOSE SOUNDING COUGH. DENIES ABDOMINAL PAIN/NAUSEA. INCONTINENT OF BOTH URINE AND BOWEL. ATTENDS IN PLACE. Q2 TURNING AND CHECKS. NPO AT THIS TIME. SPOKE WITH DR. CHAU THIS AM, BEDSIDE SWALLOW COMPLETED. SWALLOW WNL AT THIS TIME, NO SWALLOW CONCERNS. MEDS TAKEN THIS AM WHOLE WITH APPLESAUCE. DRINKING WATER WITH ASSISTANCE. CALL PLACED TO COOL COURT, MED REC BEING FAXED. WILL UPDATE DR. CHAU ON SWALLOW AND MED REC. CALL LIGHT IN REACH. WILL CONTINUE TO MONITOR.
[2022-02-20] MEDS ORDERED: FLUT1DIS5 INH (10:34)
[2022-02-20] MEDS ORDERED: MULVITA PO (10:35)
[2022-02-20] MEDS ORDERED: IMODIUM A-D2 M1 PO (10:40)
[2022-02-20] MEDS ORDERED: DULCOLAX400 MG/5 M PO (10:41)
--- NOTE | 2022-02-20 13:05 | NUR ---
Spoke with Primary RN Milli prior to visiting with Pt and discussed case. Pt resting in bed with his eyes closed upon arrival. Pt's spouse sitting on edge of bed with aditional friends at bedside. Provided update and offered therapeutic listening. Listened as spouse reports daughter being POA. Listened as spouse shares some of the family dynamic issues leading to daughter currently having POA. Continued therapeutic listening and validated concerns. No other concerns reported at this time. Called and spoke with Pt's daughter Maranda. Provided update and offered supportive listening. Maranda reports plan for her and her sister to come visit Pt this afternoon. Inquired if Pt has POLST completed with Maranda reporting Pt has copy of POLST at [facility]. No concerns reported at this time. Called and spoke with staff at [facility]. They will fax copy of POLST to Palliative Care. Palliative Care will remain available.
[2022-02-20 15:10] LABS: Hematocrit 23.9 % (37.0-53.0); Hemoglobin 7.7 g/dL (13.5-17.5)
--- NOTE | 2022-02-20 16:03 | NUR ---
UPDATE: VITALS SIGNS REMAIN STABLE. NO CHANGES IN NEURO. PATIENT VERY TIRED AND SLEEPY WAKES TO NAME AND TOUCH. DAUGHTER AND GRANDDAUGHTER AT BEDSIDE. DR. CHAU IN TO UPDATE. PLAN FOR ECHO TOMORROW. MEDICAL STATUS WITH TELE. ONE TIME DOSE LASIX GIVEN. PATIENT TURNING SELF IN BED, LIKES TO SLEEP ON SIDE. DRINKING PO FLUIDS. SMALL AMOUNTS OF FOOD. SCD'S IN PLACE. SAGAR FROM PALLIATIVE CARE IN DISCUSSING POLST WITH FAMILY. DAY SHIFT HOSP TO SIGN POLST TOMORROW DAY SHIFT. WILL CONTINUE TO MONITOR. .
--- NOTE | 2022-02-20 16:41 | NUR ---
Received call from Primary RN Milli reporting daughter has arrived and is requesting PC visit. Pt resting in bed with his eyes closed. Pt's daughter Melanie and Pt's granddaughter at bedside. Pt remains a sleep during visit. Engaged in therapeutic conversation regarding POLST. Nico Navarro who is Pt's court appointed guardian reports POLST that was completed in the past is no longer Pt's wishes and is agreeable to complete new POLST. Educated on life sustaining treatment including risk factors and implications of CPR. Educated on each section to complete including options for treatement. Assisted with completing new POLST. Pt's wishes on POLST are DNR and Limited Treatment. Engaged in therapeutic discussion regarding advanced care planning. Discussed the importance of routine conversations with Pt's PCP and developing plans for the future as disease takes its coarse. Educated on disease process including trajectory, S/S Pt may experience as disease progresses. Melanie reports Pt is starting to experience some of these already. She reports Pt's appetite has decreased and he has lost a significant amount of weight. Continued therapeutic listening as daughter and granddaughter discuss some of the family friction with Pt's spouse and legal issues that are going on. Validated concerns and continued therapeutic listening. Pt and family report no other concerns at this time. Life Science Taxonomist Jw in to visit with family. Obtained copy of court appointed guardian from nico Navarro. Plan: Will deliver copy of newly completed POLST to medical records upon MD signature and copy of court appointed guardian documents. Palliative Care will remain available.
--- NOTE | 2022-02-20 18:18 | NUR ---
SHIFT SUMMARY: NO ACUTE CHANGES. PATIENT MORE ALERT AND AWAKE THIS EVENING. REMAINS ON 1-2L NASAL CANNULA SATING MID 90'S. TELE REMAINS SINUS RHYTHM WITH HR 70'S. DENIES CHEST PAIN/PRESSURE. TOLERATING PO DIET, DECREASED APPETITE. INTERSTED IN EATING BANANAS AND ORANGE JUICE. DAUGHTERS AT BEDSIDE. INCONTINENT. ATTENDS IN PLACE. Q2 TURNS AND ATTENDS CHECK. PATIENT ABLE TO TURN SELF IN BED. AUBREY AREA REDNESS NOTED THIS EVENING, NO OPEN SORES, CREAM APPLIED. VITAL SIGNS REMAIN STABLE. MEDICAL STATUS WITH TELE. WILL CONTINUE TO MONITOR AND REPORT OFF.
--- NOTE | 2022-02-21 02:37 | NUR ---
PATIENT REMAINS IN BED ON ASSESSMENT. ALERT WITH FORGETFUL. LUNGS AND BOWEL SOUNDS ASSESSED AND PRESENT. PATIENT ON 2 LITERS. PATIENT IS INCONTIENT OF BLADDER AND BOWEL. PENIS NOTED WITH SWELLING UPON CLEANING PATIENT UP. COCCYX NOTED RED. PATIENT TURNED AND REPOSITION FREQUENTLY. PENDING ECHO AND REPEAT CXR IN A.M. SAFETY MAINTAINED AND CALL LIGHT WITHIN REACH.
[2022-02-21 03:50] LABS: BASOPHILS ABSOLUTE AUTO 0.03 K/mm3 (0.00-0.23); BASOPHILS PERCENT AUTO 0 % (0-2); EOSINOPHILS ABSOLUTE AUTO 0.09 K/mm3 (0.00-0.68); EOSINOPHILS PERCENT AUTO 1 % (0-6); Hematocrit 23.3 % (37.0-53.0); Hemoglobin 7.3 g/dL (13.5-17.5); IMMATURE GRAN ABSOLUTE AUTO 0.02 K/mm3 (0.00-0.10); IMMATURE GRAN PERCENT AUTO 0 % (0-1); LYMPHOCYTES ABSOLUTE AUTO 1.66 K/mm3 (0.84-5.20); LYMPHOCYTES PERCENT AUTO 25 % (21-46); MONOCYTES ABSOLUTE AUTO 0.33 K/mm3 (0.16-1.47); MONOCYTES PERCENT AUTO 5 % (4-13); Mean Corpuscular HGB 29.4 pg (26.0-34.0); Mean Corpuscular HGB Conc 31.3 g/dL (31.5-36.5); Mean Corpuscular Volume 94 fL (80-100); Mean Platelet Volume 9.3 fL (9.1-12.4); NEUTROPHILS ABSOLUTE AUTO 4.62 K/mm3 (1.96-9.15); NEUTROPHILS PERCENT AUTO 69 % (41-73); Platelet Count 267 K/mm3 (150-400); RDW Standard Deviation 47.4 fL (35.1-46.3); Red Blood Cell Count 2.48 M/mm3 (4.30-5.90); White Blood Cell Count 6.75 K/mm3 (4.00-11.30)
[2022-02-21 04:13] LABS: Albumin, Blood 2.4 g/dL (3.4-5.0); Anion Gap 4 mmol/L (6-16); Blood Urea Nitrogen 23 mg/dL (8-24); Bun/Creatinine Ratio 16.4 (12.0-20.0); CO2, Blood 26 mmol/L (21-32); Calcium, Blood 8.5 mg/dL (8.5-10.1); Chloride, Blood 107 mmol/L (98-108); Glomerular Filtration Rate 48 (60-); Glucose, Blood 94 mg/dL (70-99); Phosphorus, Blood 3.5 mg/dL (2.5-4.9); Potassium, Blood 3.8 mmol/L (3.5-5.5); Sodium, Blood 137 mmol/L (136-145)
--- NOTE | 2022-02-21 14:27 | NUR ---
There were concerns regarding the visitation and sharing of personal health information. I talk with patient's spouse, Sasha and patient's daughter, Melanie Giles, and learned of the family unit complications. After discussion and reviewing the daughter's court documents of Guardianship of the patient, the findings indicate that Melanie Giles has the legal right to establish who will visit and who will recieve medical information as long as it is in the best interest of the pt.
--- NOTE | 2022-02-21 17:45 | NUR ---
TRANSFER SUMMARY: REPORT GIVEN TO MERI ADKINS RN. REPORT WAS GIVEN CLEARLY WITH NO MISCOMMUNICATION QUESTIONS COMMENTS OR CONCERNS. VERBALLY INFORMED RN OF REMOVAL OF THE LEFT WRIST IV, DUE TO LEAKING. ADDITIONALLY INFORMED OF NEED FOR SIGNED POLST, PREFILLED OUT AWAITING SIGNATURE. PATIENT WAS MOVED Q2 IF NOT SOONER NEEDED MULTIPLE BRIEF CHANGES, AND REPOSITIONING TO IMPROVE COMFORT. SPOT CHECKS ON THE EAR WERE MORE PRECISE THAN THE CONT. PULSE OX ON THE FINGER, SPO2>94% ON 4L. DENIES CHEST PAIN, TELE WAS DC'D, PATIENT RR IN THE 18 TO LOW 20'S. INCONTINENT OF BOWEL AND URINE, BRIEF IN PLACE. FERRELIC WAS GIVEN PATIENT TOLERATED WELL. SCD'S WERE OFF MOST OF THE SHIFT FOR PATIENT REQUEST AND COMFORT, INFORMED THE RECIEVING RN. ECHO RESULTS GIVEN TO RECIEVING RN, GUARDIANSHIP IN THE CHART, MED REC COMPLETED PREVIOUS NIGHT. PATIENT STILL IN AFIB, NEVER CONVERTED TO SR GIVEN IN REPORT. PATIENT TRANSFERRED VIA BED BY RN AND ROLE PLAYER. PATIENT HAD NO QUESTIONS COMMENTS OR CONCERNS AT THIS TIME, OR DID THE FAMILY WHICH WAS AT THE BEDSIDE.
--- NOTE | 2022-02-21 18:49 | NUR ---
PATIENT TRANSFERRED FROM PCU 7. VITALS STABLE. REDDENED AREA ON SACRUM OBSERVED. PT ON 2 L 02 ORIENTED TO SELF, FAMILY. PT UNABLE TO RECALL WHERE HE IS AT TIMES OR WHAT DATE. PATIEN'TS DAUGHTERS AT BEDSIDE. PT'S DAUGHTER KAILEY IS GUARDIAN AND REQUESTS THAT MEDICAL INFORMATION NOT BE RELEASED BY MEDICAL STAFF TO PT'S . PLEASE REVIEW RELEASE OF INFORMATION CONSENT IN PT CHART. PT RECIEVED TRAY AFTER ARRIVING TO UNIT. WILL REPORT TO ONCOMING RN UPON ARRIVAL.
[2022-02-22 04:46] LABS: Base Excess Venous -1.8 mmol/L; Bicarbonate Venous 22.7 mmol/L (24.0-30.0); PCO2 Venous 38.1 mmHg (38-42); PO2 Venous 38.3 mmHg (38-42); pH Blood Venous 7.39 (7.34-7.37)
[2022-02-22 05:00] LABS: BASOPHILS ABSOLUTE AUTO 0.05 K/mm3 (0.00-0.23); BASOPHILS PERCENT AUTO 1 % (0-2); EOSINOPHILS ABSOLUTE AUTO 0.18 K/mm3 (0.00-0.68); EOSINOPHILS PERCENT AUTO 2 % (0-6); Hematocrit 24.9 % (37.0-53.0); Hemoglobin 7.9 g/dL (13.5-17.5); IMMATURE GRAN ABSOLUTE AUTO 0.05 K/mm3 (0.00-0.10); IMMATURE GRAN PERCENT AUTO 1 % (0-1); LYMPHOCYTES ABSOLUTE AUTO 1.98 K/mm3 (0.84-5.20); LYMPHOCYTES PERCENT AUTO 25 % (21-46); MONOCYTES ABSOLUTE AUTO 0.39 K/mm3 (0.16-1.47); MONOCYTES PERCENT AUTO 5 % (4-13); Mean Corpuscular HGB 29.7 pg (26.0-34.0); Mean Corpuscular HGB Conc 31.7 g/dL (31.5-36.5); Mean Corpuscular Volume 94 fL (80-100); Mean Platelet Volume 9.9 fL (9.1-12.4); NEUTROPHILS ABSOLUTE AUTO 5.37 K/mm3 (1.96-9.15); NEUTROPHILS PERCENT AUTO 67 % (41-73); Platelet Count 295 K/mm3 (150-400); RDW Coefficient Variation 14.1 % (11.7-14.2); Red Blood Cell Count 2.66 M/mm3 (4.30-5.90); White Blood Cell Count 8.02 K/mm3 (4.00-11.30)
[2022-02-22 05:17] LABS: Bun/Creatinine Ratio 16.2 (12.0-20.0); Calcium, Blood 8.7 mg/dL (8.5-10.1); Creatinine, Blood 1.3 mg/dL (0.60-1.20); Potassium, Blood 3.6 mmol/L (3.5-5.5)
--- NOTE | 2022-02-22 05:47 | NUR ---
Alert x's 2, very pleasant. Awake intermittently through night. No acute distress noted, respirations even and unlabored, O2@3L via n/c, increased by RT. Continuous pulse ox in place. Attempting to get out of bed multiple times this am, easily redirectable. Turned and repositioned q2hrs and as needed. safety maintained, call donovan in reach.
[2022-02-22 12:28] LABS: Source, Urine Foley catheter
[2022-02-22 12:44] LABS: Bilirubin, Urine Neg (Neg); Blood, Urine Neg (Neg); Glucose Qualitative, Urine Neg (Neg); Ketones, Urine Neg (Neg); Leukocyte Esterase, Urine Neg (Neg); Nitrite, Urine Neg (Neg); Protein, Urine 2+ (Neg); Specific Gravity, Urine 1.015 (1.003-1.022); Urobilinogen, Urine NORM (Normal)
[2022-02-22 12:46] LABS: Amorphous Light (0-Heavy); Appearance, Urine Clear (Clear); Bacteria Few /hpf; Color, Urine Pale Yellow (P-Yellow); Granular Casts 0-2 /lpf (0); Hyaline Casts 0-2 /lpf (0-2); Mucus Light (0-Heavy); Red Blood Cells, Urine 0-2 /hpf (0-2); Squamous Epithelial Cells Rare /hpf (Few); White Blood Cells, Urine 0-2 /hpf (0-5)
--- NOTE | 2022-02-22 15:55 | NUR ---
F/U Palliative Care Visit made for completion of POLST processing. POLST now fully signed. Trupti and viraj at bedside. Pt finishing lunch and appears to have eaten most of his tray. He is smiling at family and me when spoken to. Original POLST and three copies given to trupti. Copies placed on chart and also sent to Medical records with guardianship paperwork for scanning into pt's EMR. No further needs identified by trupti at this time. She will make sure [facility] and pt's PCP receive a copy of pt's updated POLST.
--- NOTE | 2022-02-22 17:25 | NUR ---
PATIENT ALERT AND ORIENTED X2. PT HAS DEMENTIA BASELINE. RN AND AUTO ELECTRICAL TECHNICIAN ABLE TO 1 ASSIST TRANSFER WITH A WALKER AND A GAIT BELT TO BEDSIDE COMMODE FOR BOWEL MOVEMENTS. MD ORDERED MARQUEZ FOR URINARY RETENTION. PT UNABLE TO PEE WITH STAFF USING URINAL OR BEDSIDE COMMODE X4. MARQUEZ PLACED PATENT AND DRAINING. MARQUEZ SAMPLE SENT. PATIENT FAIRLY PLEASANT AND COOPERATIVE DURING THE DAY. AROUND 3-4PM PATIENT CONT TO SHOW MORE AGITATION AND PERSISTED TO TRY AND GET OUT OF BED. PT'S FAMILY IN ROOM FROM 7-7P. MD ORDERED SEROQUEL PRN Q 4 NEEDED. REASSESMENT AFTER 1 HOUR AND PT APPEARS TO BE SLEEPING NO LONGER AGITATED. WILL REPORT TO ONCOMING RN UPON ARRIAL.
--- NOTE | 2022-02-22 18:45 | NUR ---
PATIENT'S DAUGHTER IN ROOM FEEDING PT DURING DINNER. PATIENT'S DAUGHTER CAN BE HEARD YELLING FOR HELP. PATIENT PROJECTILE VOMITTED FOOD THAT HE HAD BEEN EATING. PATIENT ASSESSED NO SIGNS OF DISTRESS. LUNGS ASCULTATED. LUNGS SOUNDS ARE DIMINISHED BILATERALLY. VACUUM CANISTER AND SUCTION YOUNKER PLACED IN PATIENT'S ROOM. MD CALLED CONSULTED ON EPISODE. MD ORDERED A SPEECH EVALUATION CONSULT. ORDER PLACED. UPDATE WILL BE PROVIDED TO RN DURING SHIFT CHANGE.
--- NOTE | 2022-02-23 04:39 | NUR ---
SHIFT SUMMARY PATIENT CONFUSED TRYING TO GET OUT OF BED UNASSTED SEVERAL TIME ALSO TRYING TO PULL OUT HIS MARQUEZ CATH AND OXYGEN PRN SEROQUEL ADM WITH LITTLE EFFECT STATING HE IS GOING HOME HE WAS PROMISED TO GO HOME.STAFF HAS CLOSELY MONITORING PT FOR SAFETY BED ALARM ON AT THIS MOMENT
--- NOTE | 2022-02-23 13:08 | NUR ---
Second Pal Care order received stat - Visit made to libertad initially and then a second libertad joined us while pt was out of room for barium swallow study. Pt returned to room during our visit and was turned on side, somnolent. Barium swallow study could not be completed as pt was unable or declined to participate. Long conversation with daughters and empathetic listening re: stress of legal carter to ensure their dad's safety and well being and also anticipatory grieving. Conversation r/t to progression of dementia with swallowing difficulty and recurrent aspiration, malnutrition with decreased PO intake for many months signaling end stage process for pt. Daughters do not want to consider artificial nutrition by tube or IV at this time. They want to talk further amongst themselves and will let us know if they would like EOL or comfort care initiated here or Hospice services on d/c. Pt meets hospice criteria for dementia, protein calorie malnutrition, resp failure and failure to Thrive. His PPS score is 20%. KPS score is 20%. Their primary goal and concern is that pt's comfort is attended to and that he is in a safe environment. Their first choice for care would be for pt to return to [facility], possibly with hosice support. Report on my visit to pt's RN and DR. Lemons came by to visit also.
--- NOTE | 2022-02-23 14:56 | NUR ---
Spiritual care visit conducted. Discussed guardianship, comfort measures and family unit complications. Daughters and legal gaurdian, Irma, are leaning toward comfort measures but they share concerns about palcement with hospice. They fear that patient's spouse, Sasha is a threat to pt's safety and that she does not have pt's best interest in mind. They are tearful as they talk about their desire to have the patient well cared for and to not suffer. I listen emapthically and provide gentle probation counselor and prayer. Irma respond well and shows signs of feeling supported and encouraged. I will continue to assist in helping them make decisions that best come in line with the pt's wishes.
--- NOTE | 2022-02-23 19:25 | NUR ---
PATIENT LETHARGIC TODAY. PT REFUSED MEALS. RN HAD DIFFICULTY MEDICATING PT BECAUSE OF ALERT STATUS.FAMILY IN ROOM. ST THERAPY IN ROOM COMPLETED ASSESSMENT AND PT PROJECTILE VOMMITED. BARIUM SWALLOW STUDY ORDERED. PT TAKEN DOWN BUT REFUSED THE TEST. PALLIATIVE CARE SAW PT. WILL CONTINUE TO MONITOR UNTIL ARRIVAL.
--- NOTE | 2022-02-24 04:36 | NUR ---
SHIFT SUMMARY PATIENT SLEPT MOST OF THE NIGHT WOKE UP AT 2AM DURING CARE ENSURE OFFERED PT DRUNK 3/4 OF IT AND 120CC OF WATER NO VOMMIT OR SIGNS OF ASPIRATION NOTED.SEROQUEL WAS NOT ADMIN PER DAUGHTER REQUEST SO PT WILL BE ALERT FOR SPEECH EVAL.99% SPO2 ON OXYGEN VIA N/C FOLLEY CATH DRANING KEON URINE SAFETY IN PLACE WILL CONT TO MONITOR
[2022-02-24 05:45] LABS: Bun/Creatinine Ratio 19.8 (12.0-20.0); Creatinine, Blood 1.31 mg/dL (0.60-1.20)
--- NOTE | 2022-02-24 15:05 | NUR ---
Supportive visit this afternoon. Pt resting in bed with granddaughter at bedside. Pt rests with his eyes closed for most of the visit. Offered therapeutic listening and answered questions. Granddaughter assists Pt with drinking some ensure. Gentle education on the importance of elevating Pt's head before intake. Pt coughs with each drink. Instructed Pt to take smaller sips and to tuck chin. Pt complies with smaller sips but does not seem to understand instructions for tucking chin. Pt continued to cough after each swallow. Continued supportive visit. Ended visit to allow Pt to rest. Spoke with Primary RN Chinedu and discussed case. Possible D/C back to [facility] Monday. Palliative Care will remain available.
--- NOTE | 2022-02-24 17:08 | NUR ---
PT ASLEEP UPON ARRIVAL REFUSED CPAP OVERNIGHT. NO ACUTE CHANGES. PT'S BP LOW RN AND STAFF ENCOURAGED FLUIDS AND PLACE PT IN HIGH FOWLERS FOR A RECHECK. MD FOLLOWED UP WITH FAMILY IN ROOM AND RECOMMENDED CONT FLUIDS AND THEN DISCHARGE BY Monday02/27/22. PT AGREEABLE WITH PLAN. PALLIATIVE CARE AND CASE MANAGEMENT HAVE CONSULTED WITH FAMILY. PATIENT MOVED FROM 357 TO 364 DUE TO SECURITY ISSUES FROM PT'S AND FRIENDS WHO ARE NOT ALLOWED TO SEE THE PATIENT PER GUARDIAN (DAUGHTER). PATIENT MORE ALERT THAN YESTERDAY BUT CONTINUES TO BE WITHDRAWN AND REFUSES TO EAT OR DRINK. WILL CONTINUE TO MONITOR AND REPORT TO RN UPON ARRIVAL.
--- NOTE | 2022-02-25 06:50 | NUR ---
SHIFT SUMMARY PT IS AN 86 Y/O MALE, ADMITTED FOR ACUTE ON CHRONIC RESPIRATORY FAILURE. HE IS A&O X SELF, ON BEDREST. ON 2L O2 VIA NC, SATTING > 90%. VITAL SIGNS STABLE. RECEIVING LR @ 100 ML/HR. NO C/O ACUTE PAIN, NAUSEA OR SOB. MARQUEZ IN PLACE, PATENT AND DRAINING. NO ACUTE CHANGES IN PT CONDITION NOTED. WILL CONTINUE TO MONITOR AND TREAT PER EMAR UNTIL HAND OFF TO DAY SHIFT RN.
--- NOTE | 2022-02-25 10:58 | NUR ---
COMFORT CARE PT WAS MADE COMFORT CARE WITH FAMILIES KNOWLEDGE AND CONCSETN THIS AM. PT IS RESTING COMFORTABLE IN BED. IV DC'D
--- NOTE | 2022-02-25 11:12 | NUR ---
Comfort Care Visit Reviewed chart, Dr Naqvi spoke with family and comfort care was decided. Plan for Pt to D/C on Monday back to [facility] with hospice services. Pt resting in bed upon arrival. Pt's son in law at bedside. Pt denies pain and dyspnea at this time but does report nausea. No other concerns reported at this time. Spoke with Primary RN Maryann, discussed case and reported Pt's nausea. Maryann will offer Zofran for nausea. Palliative Care will remain available.
--- NOTE | 2022-02-25 14:48 | NUR ---
Received call from Primary SAMARA Wolf reporting family requesting a visit from Palliative Care. Pt resting in bed with his eyes closed. Pt's daughter Nola and Pt's granddaughter at bedside. Family hands this RN a document to turn into medical records. Family reports the document instructs staff on who is appointed to make decisions for arrangements upon Pt's . Offered therapeutic listening as family respectfully expresses frustration regarding Pt's spouse being given the password to receive information including room number. Continued therapeutic listening and validated concerns. Family express appreciation and report no other concerns at this time. Delivered copy of document to medical records and placed another copy in Pt's paper chart. Spoke with senior financial accountantSAMARA Bliss and Primary SAMARA Wolf and made aware of document in chart. Palliative Care will remain available.
--- NOTE | 2022-02-25 18:32 | NUR ---
SHIFT SUMMARY FAMILY HAS BEEN IN PTS ROOM ALL DAY. PT VERY CONFUSED KNOWS HIMSELF AND FAMILY ONLY. MADE COMFORT CARE THIS AM BY FAMILY AND DOCTOR.INFORMATION PLACED IN PTS CHART ON WHO TO CALL IF PT SHOULD PASS WHILE IN HOSPITAL CARE. NO ISSUES WITH OUTSIDE FAMILY TRYING TO COME IN TO VISIT. TODAU. MARQUEZ REMOVED THIS EVENING PT HAD A BLOCKAGE AND WAS URINATING AROUND THE CATHETER. SOME LIGHT PINK TINGED URINE UPON REMOVAL PT HAS BEEN TUGGING ON CATHETER BEFORE REMOVAL. PT HAS HAD NAUSEA AND VOMITING TODAY. NO OTHER COMPLAIN OF PAIN, HE IS ALLOWED TO EAT WHATEVER HE LIKES, BUT ASPIRATES ON FOOD FREQUENTLY. WILL CONTINUE TO MONITOR.
--- NOTE | 2022-02-26 05:58 | NUR ---
SHIFT SUMMARY NO ACUTE CHANGES TO REPORT THIS SHIFT. DESIGNATED FAMILY IN ROOM WITH PT WHEN THIS RN CAME ONTO SHIFT, THEY LEFT AROUND 1999. NO OTHER CALLS OR VISITS FROM FAMILY THIS SHIFT. PT IS A/O TO SELF ONLY, ABLE TO FOLLOW SIMPLE DIRECTIONS. HE HAS HAD THREE SMALL BM'S THIS SHIFT, INCONTINENT OF URINE. PT DENIES PAIN OR NEEDS WHEN ASKED. PT REPOSITIONED FOR COMFORT. PT HAS RESTED CALMLY IN BED FOR MOST OF THE NIGHT, AND HAS NOT REQUIRED ANY MEDICATION FOR AGITATION. COMFORT ASSESSED T/O SHIFT. BED IN LOWEST POSITION, CALL LIGHT WITHIN REACH.
--- NOTE | 2022-02-26 18:11 | NUR ---
SHIFT SUMMARY NO ACUTE CHANGES THIS SHIFT. FAMILY HAS BEEN IN THE ROOM WITH THE PT ALL DAY. THEY WANT TO KNOW HOW THEY CAN FIND OUT WHO IS SHARING THE PTS INFORMATION CHARGE YESTERDAY LEFT A MESSAGE WITH THE COMPLIANCE AND BUTCHER ALL ROUND TO FOLLOW UP WITH THEM ON MONDAY. I PASSED THIS INFORMATION ON TO THEM WHICH REASSURED THEM . WILL CONTINUE TO MONITOR PT. HE IS STILL SET TO DISCHARGE BACK TO [place] ON MONDAY
--- NOTE | 2022-02-26 20:44 | NUR ---
COMFORT: PATIENT REPORTS NO PAIN OR DISCOMFORT. INC OF STOOL, BRIEF IS CHANGED. PATIENT IS ASSISTED WITH REPOSITIONING. DAUGHTER IS AT BEDSIDE.
--- NOTE | 2022-02-26 23:51 | NUR ---
COMFORT: PATIENT IS RESTLESS. RESPIRTAIONS ARE 28, OXYGEN IS ON AT 2L VIA NC SAT IS 94%. PRN ROXANOL 10 MG IS GIVEN.
--- NOTE | 2022-02-27 02:00 | NUR ---
COMFORT: PATIENT IS RESTING WITH EYE'S CLOSED, RESPIRATIONS ARE IMPROVED AT 20 WITH NO RESPIRTAORY DISTRESS. GOOD EFFECT FROM ROXANOL OBSERVED.
--- NOTE | 2022-02-27 02:16 | NUR ---
COMFORT: PATIENT IS RESTING COMFORTABLE, NO S/S OF PAIN OR DISCOMFORT.
--- NOTE | 2022-02-27 07:10 | NUR ---
SHIFT SUMMARY: PATIENT CONTINUES TO REST COMFORTABLY. REFUSED ALL BUT SIPS OF WATER. [employer] CARE GIVEN Q2H. BED ALARM IS ON FOR SAFETY.
--- NOTE | 2022-02-27 18:24 | NUR ---
SHIFT SUMMARY PT IS ASLEEP IN BED HE HAS NOT OPENED HIS EYES MUCH THIS SHIFT AND RESPONDS ONLY TO STIMULI. HIS FAMILY IS AT THE BEDSIDE. THEY HAD ANOTHER MEETING WITH PALLIATIVE CARE TO DISCUSS FAMILY DYNAMICS AND HIS MOVE BACK TO [place]. PT MEDICATED PER JAN FOR PAINAND HAS A HEATING PAD ON HIS BACK TO HELP WITH LOWER BACK PAIN, WILL CONTINUE TO MONITOR.
--- NOTE | 2022-02-28 00:34 | NUR ---
COMFORT: PATIENT IS RESTING COMFORTABLY WITH FAMILY AT BEDSIDE.
--- NOTE | 2022-02-28 00:35 | NUR ---
COMFORT: PATIENT IS RESTLESS, SCORES A 3 ON FLACC SCALE. ROXANOL 15 MG IS GIVEN. PATIENT IS NON VERBAL AT THIS TIME BUT RESPONDS TO VOICE AND TOUCH.
--- NOTE | 2022-02-28 00:38 | NUR ---
COMFORT: PATIENT IS AGAIN RESTLESS, SCORES A 4 ON FLACC SCALE. 20 MG OF ROXANOL IS GIVEN. FAMILY REMAINS AT BEDSIDE. EMOTIONAL SUPPORT IS GIVEN TO PATIENT AND FAMILY.
--- NOTE | 2022-02-28 06:00 | NUR ---
SHIFT SUMMARY: PATIENT HAS BEEN RESTLESS, SCORING 3-4 ON FLACC SCALE. ROXANOL WAS GIVEN X3. 15MG WAS NOT PROVIDING ENOUGH PAIN CONTROL. 20 MG WAS GIVEN WITH BETTER EFFECT LASTING LONGER. FAMILY REMAINS AT BEDSIDE THIS SHIFT. EMOTIONAL SUPPORT GIVEN TO PATIENT AND FAMILY.
--- NOTE | 2022-02-28 18:10 | NUR ---
late entry had extenive conversation with family yesterday about legal issues with pt . Reviewed today with hospital ethicist. pt getting new guardian reveiw with family strategies of dealing with family and pt . they are grieving and fatigued by the family challenges. They have prepain for a funneral. at [facility].
--- NOTE | 2022-03-01 00:02 | NUR ---
COMFORT: PATIENT SCIRES A 4 ON FLACC SCALE. PRN MORPHINE AND ATIVAN ARE GIVEN. EMOTIONAL SUPPORT IS GIVEN TO PATIENT AND FAMILY.
--- NOTE | 2022-03-01 00:06 | NUR ---
COMFORT PATIENT IS RESTING COMFORTABLY, NO S/S OF PAIN OR DICOMFORT. FAMILY REQUEST NO T&P.
--- NOTE | 2022-03-01 00:08 | NUR ---
COMFORT: PATIENT SCORED 4 ON FLACC SCALE. PRN ROXANOL AND ATIVAN ARE GIVEN.
--- NOTE | 2022-03-01 01:59 | NUR ---
COMFORT: PATIENT HAD GOOD EFFECT FROM ATIVAN AND MORPHINE. RESTING COMFORTABLY WITH FAMILY AT BEDSIDE.
--- NOTE | 2022-03-01 05:47 | NUR ---
COMFORT: PATIENT IS RESTING QUIETLY WITH NO S/S OF PAIN OR DISCOMFORT. FAMILY IS SLEEPING AT BEDSIDE.
--- NOTE | 2022-03-01 05:49 | NUR ---
SHIFT SUMMARY: PATIENT IS RESTLESS IN BED, SCORES A 4 ON FLACC SCALE. MORPHINE AND ATIVAN ARE GIVEN. PATIENT IS SECRETIONS ARE DEEP. PATIENT IS UNABLE TO COUGH THEM UP INTO MOUTH. HEAD OF THE BED IS RAISED. ORAL CARE GIVEN.
--- NOTE | 2022-03-01 10:28 | NUR ---
PATIENT RESTING COMFORTABLY AT THIS TIME. FAMILY AT BEDSIDE AND DENY ANY NEEDS AT THIS TIME.
--- NOTE | 2022-03-01 14:19 | NUR ---
Patient appears to be transitioning. Family are present and tearful. They discuss the family unit complications, pt's new guardianship arrangements and their buddhist and amrry support. We talk about the beautiful things the Bible says about the afterlife and the meaning that struggle and suffering has on earth. I provide theological insights, encouragement, a calming presence and prayer. Family respond well and show signs of an being comforted. I will continue to remain available to patient and family.
--- NOTE | 2022-03-01 15:00 | NUR ---
PALLIATIVE CARE NURSE SAGAR AT BEDSIDE WITH STUDENT NURSE AND THEY CHANGED ATTENDS AND REPOSITIONED PATIENT. PAIN MEDICATION GIVEN AFTER PER FAMILY REQUEST. FAMILY DENIES ANY FURTHER NEEDS AT THIS TIME.
--- NOTE | 2022-03-01 15:21 | NUR ---
Comfort Care Visit Pt resting in bed with his eyes closed upon arrival. Family at bedside. Offered therapeutic listening and reviewed plan of care. Accompanied by professor of nursing Cat. Changed Pt's brief per family request, samy care provided, and repositioned Pt. Family express appreciation and report no other concerns at this time. Spoke with Primary RN Tamiko and discussed case. Palliative Care will remain available.
--- NOTE | 2022-03-01 17:00 | NUR ---
PATIENT RESTING COMFORTABLY, FAMILY ASSISTING WITH CARE AND CALLING STAFF WHEN NEEDED. MORPHINE AND ATIVAN GIVEN X1 THIS SHIFT WITH GOOD RELIEF. PATIENT APPEARS COMFORTABLE. FAMILY DENIES ANY NEEDS AT THIS TIME.
--- NOTE | 2022-03-02 07:05 | NUR ---
PT PASSED AT APPROX 0645. FAMILY AT BEDSIDE, DENIES PASTORAL CARE AT THIS TIME. [employer] NOTIFIED. ARRANGMENTS SET UP AT [facility].
--- NOTE | 2022-03-02 10:05 | NUR ---
PATIENT AT 0645 THIS AM WITH FAMILY AT BEDSIDE. PATIENT PICKED UP BY [facility]. BELONGINGS SENT WITH FAMILY.
== END 2022-03-02 06:45 | DRG 177 ==
LOC: ER 00:39 → MEDS 04:10 → ERHOLD 04:10 → PCU 04:10 → MEDS 02-21 18:06
PROVIDERS: Family Medicine; Internal Medicine; Student in an Organized Health Care Education/Training Program; ADMIT Internal Medicine
DX: J69.0 Pneumonitis due to inhalation of food and vomit (principal); J96.21 Acute and chronic respiratory failure with hypoxia; I50.31 Acute diastolic (congestive) heart failure; I48.92 Unspecified atrial flutter; I13.0 Hypertensive heart and chronic kidney disease with heart failure and stage 1 through stage 4 chronic kidney disease, or unspecified chronic kidney disease; F03.91 Unspecified dementia, unspecified severity, with behavioral disturbance; I24.8 Other forms of acute ischemic heart disease; Z51.5 Encounter for palliative care; J18.9 Pneumonia, unspecified organism; Z66 Do not resuscitate; Z20.822 Contact with and (suspected) exposure to COVID-19; D63.1 Anemia in chronic kidney disease; N18.30 Chronic kidney disease, stage 3 unspecified; E78.5 Hyperlipidemia, unspecified; I48.0 Paroxysmal atrial fibrillation; D50.9 Iron deficiency anemia, unspecified; J44.9 Chronic obstructive pulmonary disease, unspecified; R33.9 Retention of urine, unspecified; R13.10 Dysphagia, unspecified; Z99.81 Dependence on supplemental oxygen; Z98.890 Other specified postprocedural states
CPT/HCPCS: 0241U; 31720; 36415; 71045; 80048; 80053; 80069; 81001; 82272; 82607; 82728; 82746; 82803; 83540; 83550; 83605; 83880; 84145; 84443; 84484; 85014; 85018; 85025; 87040; 92610; 93005; 93010; 93306; 94640; 94660; 94664; 94760; 94762; 96365; 96366; 96375; 99285-25; A9270; J0456; J0696; J1940; J2405; J2916; J7030; J7050; J7120